=== PATIENT | female | born 1955 | race African-American/Black ===

== ENCOUNTER → 2017-11-27 | Outpatient (CLI) | payer OTHER ==
[~2017-11-27] MED LIST: ASPIRIN81 MG PO; CLONIDINE HCL0.1 MG PO; HYDROCHLOROTHIA25 MG PO; LOSARTAN POTASS25 MG PO; METOPROLOL SUCC25 MG PO
== END ==
LOC: DX 13:17 → EDSTATUS 12-15 11:00
PROVIDERS: ATTEND Internal Medicine Gastroenterology
DX: Z01.810 Encounter for preprocedural cardiovascular examination (principal); Z12.11 Encounter for screening for malignant neoplasm of colon
CPT/HCPCS: 93005